=== PATIENT | female | born 1995 ===

== ENCOUNTER → 2025-04-30 12:15 | Outpatient (CLI) | payer OTHER, SELFPAY ==
--- NOTE | 2025-04-30 12:18 | DI.US.S_ITS ---
PROCEDURE: US OB <= 14 WEEKS FETUS INDICATIONS: Viability OUTSIDE/PRIOR DATING DATA: Last menstrual period (LMP): March 04, 2025. LMP-based estimated date of delivery (OLIVER): December 09, 2025. First dating scan (date and location): April 30, 2025. Estimated date of delivery (OLIVER) from first dating scan: December 03, 2025. TECHNIQUE: Real-time scanning was performed of the fetus and maternal pelvic organs, with image documentation. Endovaginal scanning was also performed to better visualize the fetus and maternal ovaries. COMPARISON: None. FINDINGS: Embryo: Single living intrauterine gestation with estimated sonographic gestational age of approximately 9 weeks and 0 days based off crown-rump length measurement of approximately 2.3 cm. There are 2 areas of perigestational hemorrhage with 1 near the fundus measuring 2.4 x 0.4 x 1.4 cm and the 2nd in the cervical os measuring 2.6 x 1.1 x 3.4 cm. There also venous lakes identified near the fundus. Normal yolk sac is visualized. Heart rate: 182 beats per minute Maternal organs: Ovaries appear unremarkable. There is a left corpus luteal cyst. IMPRESSION: Single living intrauterine gestation with estimated sonographic gestational age of approximately 9 weeks and 0 days. Estimated dated delivery is approximately December 03, 2025. Two areas of perigestational hemorrhage. We strive to produce accurate, complete, and clear reports of imaging services. To assist us in improving patient care, this report was composed using standard report templates and voice recognition software. Therefore, it may contain abnormal punctuation, insertions and/or omissions. Occasional wrong-word or sound-alike substitutions may occur. Though we review the report and make efforts to correct it, we do recommend that the report be read carefully in proper context to recognize any text inaccuracies. Dictated by: Juan Armendariz M.D. on 04/30/2025 at 15:57 Approved by: Juan Armendariz M.D. on 04/30/2025 at 16:00
== END ==
PROVIDERS: Referring Provider Advanced Practice Midwife; Visit Provider Advanced Practice Midwife
DX: O46.8X1 Other antepartum hemorrhage, first trimester (principal); Z3A.09 9 weeks gestation of pregnancy
CPT/HCPCS: 76801; 76817

== ENCOUNTER → 2025-07-16 11:59 | Outpatient (CLI) | payer OTHER, SELFPAY ==
--- NOTE | 2025-07-16 12:02 | DI.US.S_ITS ---
PROCEDURE: US OB >= 14 WEEKS FETUS INDICATIONS: 20 week anatomy scan OUTSIDE/PRIOR DATING DATA: Working OLIVER: 12/09/2025 TECHNIQUE: Real-time scanning was performed of the fetus, with image documentation and biometric measurements. Endovaginal scanning: Not obtained COMPARISON: [facility], , OB <= 14 WEEKS FETUS, 04/30/2025, 12:24. FINDINGS: General: A single living intrauterine gestation is present. Presentation: Vertex. Placenta: Placental position is anterior , without previa. Amniotic fluid index: 15.1 cm, normal range is 5-24 cm. Single deepest vertical pocket is 4.1 cm. heart rate: 152 beats per minute. Maternal cervical canal: 3.9 cm long. Normal lower limit is 2.5 cm. biometrics: Biparietal diameter: 4.9 cm 20 weeks 6 days Head circumference: 18.6 cm 21 weeks 0 days Abdominal circumference: 15.9 cm 21 weeks 0 days Femur length: 3.5 cm 21 weeks 1 day Clinically estimated gestational age: 20 weeks 0 days Composite gestational age from present scan: 21 weeks 0 days Estimated weight and percentile: 397 g 94th percentile Anatomic survey: Neuro: Ventricles are non-dilated at less than 10 mm. Cisterna magna is normal at 3-11 mm. Cerebellum is normal in size and morphology. Nuchal skin fold: Normal at less than 6 mm between 14-21 weeks gestational age. Face: Nose and lips, facial profile are normal. Spine: No evidence for spina bifida. Heart: 4-chambered heart is present, with normal ventricular outflow tracts. Diaphragm: Diaphragm is intact. Stomach: Left-sided stomach is present. Kidneys: No hydronephrosis. Normal is less than 5 mm in 2nd trimester, less than 7 mm in 3rd trimester. Cord: 3-vessel cord has orthotopic insertion. Bladder: Normal in size. Extremities: All 4 extremities identified. IMPRESSION: Single live intrauterine with ultrasound gestational age 21 weeks 0 days. Anatomy is within normal limits. We strive to produce accurate, complete, and clear reports of imaging services. To assist us in improving patient care, this report was composed using standard report templates and voice recognition software. Therefore, it may contain abnormal punctuation, insertions and/or omissions. Occasional wrong-word or sound-alike substitutions may occur. Though we review the report and make efforts to correct it, we do recommend that the report be read carefully in proper context to recognize any text inaccuracies. Dictated by: Alexandra Chin M.D. on 07/16/2025 at 16:59 Approved by: Alexandra Chin M.D. on 07/16/2025 at 17:01
== END ==
LOC: US 12:02
PROVIDERS: Referring Provider Advanced Practice Midwife; Visit Provider Advanced Practice Midwife
DX: Z34.92 Encounter for supervision of normal pregnancy, unspecified, second trimester (principal); Z3A.20 20 weeks gestation of pregnancy
CPT/HCPCS: 76811